=== PATIENT | female | born 1985 | race African-American/Black ===

== ENCOUNTER 2016-04-24 11:53 | Inpatient (IN) | payer MEDICAID ==
[~2016-04-24] VITALS: Ht 160 cm; Wt 61.2 kg
[~2016-04-24 11:53] MED LIST: AMLO10TA2 PO; ATE25T PO; FLUO20CA90 PO; GABA300C8 PO; INSLANTI SUBCUT; LEVE100020 PO; PHE100C PO
[2016-04-24 12:28] LABS: Urine Bilirubin Negative (Negative); Urine Blood Negative /uL (Negative); Urine Color Yellow (Yellow); Urine Ketone TRACE (Negative); Urine Nitrite Negative (Negative); Urine RBC 3 /hpf (0 - 4); Urine Squamous Epithelial Cell FEW /hpf (<5); Urine Urobilinogen Normal (Negative); Urine pH 8.5 (5.0-8.0)
[2016-04-24 12:30] LABS: Urine Glucose 4+ mg/dL (Normal)
[2016-04-24 12:46] LABS: Basophils # (auto) 0 uL; Basophils % (auto) 0.1 % (0.0-2.0); Eosinophils # (auto) 0 uL; Eosinophils % (auto) 0.1 % (0.0-7.0); Hematocrit 29.1 % (36.0-46.0); Hemoglobin 9.5 g/dL (12.2-16.2); Lymphocytes # (auto) 0.4 uL; Mean Corpuscular Hemoglobin 32.9 pg (28.0-32.0); Mean Corpuscular Hgb Conc. 32.7 g/dL (32.0-36.0); Mean Corpuscular Volume 100.9 fL (80.0-100.0); Mean Platelet Volume 10.1 fL (7.4-10.4); Monocytes # (auto) 0.2 uL; Monocytes % (auto) 2.3 % (0.0-12.0); Neutrophils % (auto) 93.5 % (37.0-80.0); Platelet Count (auto) 180 10^3/uL (140-450); Red Cell Distribution Width 15.3 % (11.6-16.0); White Blood Cell 10.7 10^3/uL (4.4-10.8)
[2016-04-24 13:07] LABS: Albumin 3.2 g/dL (3.4-5.0); Calcium 8.9 mg/dL (8.5-10.1); Magnesium 3.1 mg/dL (1.6-2.6); Potassium 4.9 mmol/L (3.5-5.1)
[2016-04-24 13:10] LABS: BUN/Creatinine Ratio 11.8
[2016-04-24 13:16] LABS: Bilirubin, Total 0.3 mg/dL (0.2-1.0); Total Protein 7.3 g/dL (6.4-8.2)
[2016-04-24] MEDS ORDERED: ASPirin 325 MG TAB PO ONE (13:30)
[2016-04-24] MEDS ORDERED: InsuLIN REG 1unit/0.01ml Soln (100units/ml) IV ONE (13:30)
[2016-04-24] MEDS ORDERED: ONDANSETRON HCL 4 MG/2 ML VIAL IV ONE (13:30)
[2016-04-24] MEDS ORDERED: MORPHINE SULFATE 4 MG/ML SYRG IV ONE (13:30)
[2016-04-24] MEDS ORDERED: PIPERACILLIN-TAZOB 3.375GM 100 ML IV ONE (13:30)
[2016-04-24 14:46] LABS: Lactic Acid 3.8 mmol/L (0.4-2.0)
[2016-04-24 15:08] LABS: REFLEX LACTIC ACID YES OR NO YES
[2016-04-24 16:30] LABS: Lactic Acid 5.1 mmol/L (0.4-2.0)
[2016-04-24 16:37] LABS: REFLEX LACTIC ACID YES OR NO NO
[2016-04-24] MEDS ORDERED: metroNIDAZOLE 500MG/100ML 100 ML IV ONE (16:45)
[2016-04-24] MEDS ORDERED: ACETAMINOPHEN 325 MG TAB PO PRN (17:15)
[2016-04-24] MEDS ORDERED: DEXTROSE (50%) 50ML SYRG IV PRN (17:15)
[2016-04-24] MEDS ORDERED: LORazepam 2MG/ML-1ML VIAL IV PRN (17:15)
[2016-04-24] MEDS ORDERED: TEMAZEPAM 15 MG CAP PO PRN (17:15)
[2016-04-24] MEDS ORDERED: MORPHINE SULF INJ 2 MG/ML SYRINGE 1ML IV PRN (17:15)
[2016-04-24] MEDS ORDERED: NITROGLYCERIN 0.4 MG SL TAB SL PRN (17:15)
[2016-04-24] MEDS: SODIUM CHLORIDE 0.9% 1,000 ML IV SCH (17:36)
[2016-04-24] MEDS ORDERED: FLUoxetine HCL 20 MG CAP PO ONE (17:45)
[2016-04-24] MEDS ORDERED: PHENYTOIN SODIUM 100 MG CAP PO ONE (17:45)
[2016-04-24] MEDS ORDERED: MULTIPLE VITAMIN TAB PO ONE (17:45)
[2016-04-24] MEDS: FAMOTIDINE 20 MG TAB PO SCH (17:45)
[2016-04-24] MEDS ORDERED: LEVETIRACETAM 500 MG TAB PO ONE (17:45)
[2016-04-24] MEDS ORDERED: ATENOLOL 25 MG TAB PO ONE (17:45)
[2016-04-24 18:00] VITALS: BP 132/89
[2016-04-24] MEDS ORDERED: InsuLIN REG 1unit/0.01ml Soln (100units/ml) SC ONE (18:00)
[2016-04-24] MEDS ORDERED: ACCU-CHEK COMFORT CURVE STRIP VI ONE (18:00)
[2016-04-24] MEDS ORDERED: cloNIDine HCL 0.1 MG TAB PO PRN (18:45)
[2016-04-24] MEDS ORDERED: LISI10TA6 PO (18:53)
[2016-04-24] MEDS ORDERED: METO-159 PO (18:53)
[2016-04-24] MEDS ORDERED: NIF10C PO (18:53)
[2016-04-24] MEDS ORDERED: DOCU100T15 PO (18:53)
[2016-04-24] MEDS ORDERED: GABA300C8 PO (18:53)
[2016-04-24] MEDS ORDERED: ONDA8TAB6 PO (18:53)
[2016-04-24] MEDS ORDERED: AMLO5TAB2 PO (18:53)
[2016-04-24 18:55] VITALS: BP 132/89
[2016-04-24] MEDS: ONDANSETRON HCL 4 MG/2 ML VIAL IV PRN (20:23)
[2016-04-24] MEDS: MORPHINE SULF INJ 2 MG/ML SYRINGE 1ML IV PRN (20:23)
[2016-04-24] MEDS: PHENYTOIN SODIUM 100 MG CAP PO SCH (21:41)
[2016-04-24] MEDS: GABAPENTIN 100 MG CAP PO SCH (21:41)
[2016-04-24] MEDS: LEVETIRACETAM 500 MG TAB PO SCH (21:42)
[2016-04-24 22:00] VITALS: BP 141/76
[2016-04-24] MEDS ORDERED: InsuLIN REG 1unit/0.01ml Soln (100units/ml) SC SCH (22:00)
[2016-04-24] MEDS: ACCU-CHEK COMFORT CURVE STRIP VI SCH (22:13)
[2016-04-24] MEDS: PIPERACILLIN-TAZOB 2.25GM 50 ML IV SCH (22:13)
[2016-04-24] MEDS: INSULIN DETEMIR(LEVEMIR) 1unit/0.01ml Soln (100units/ml) SC SCH (22:14)
[2016-04-25] MEDS: SODIUM CHLORIDE 0.9% 1,000 ML IV SCH ×2 (01:29→09:49)
[2016-04-25] MEDS: metroNIDAZOLE 500MG/100ML 100 ML IV SCH ×3 (02:00→18:01)
[2016-04-25] MEDS: MORPHINE SULF INJ 2 MG/ML SYRINGE 1ML IV PRN ×3 (03:02→22:22)
[2016-04-25] MEDS: ONDANSETRON HCL 4 MG/2 ML VIAL IV PRN ×2 (03:02→22:22)
[2016-04-25 05:00] VITALS: BP 120/69
[2016-04-25] MEDS: ACCU-CHEK COMFORT CURVE STRIP VI SCH ×6 (06:43→22:23)
[2016-04-25] MEDS: InsuLIN REG 1unit/0.01ml Soln (100units/ml) SC SCH ×4 (06:44→22:00)
[2016-04-25] MEDS: INSULIN DETEMIR(LEVEMIR) 1unit/0.01ml Soln (100units/ml) SC SCH ×2 (06:44→22:53)
[2016-04-25 07:50] LABS: Albumin 2.5 g/dL (3.4-5.0); BUN/Creatinine Ratio 10.3; Calcium 7.9 mg/dL (8.5-10.1); Potassium 4.5 mmol/L (3.5-5.1)
[2016-04-25 07:53] LABS: Bilirubin, Total 0.2 mg/dL (0.2-1.0); Total Protein 6.4 g/dL (6.4-8.2)
[2016-04-25 08:47] LABS: Basophils # (auto) 0 uL; Basophils % (auto) 0.2 % (0.0-2.0); DEFINITIVE VIEW TRANSMISSION; Eosinophils # (auto) 0.1 uL; Eosinophils % (auto) 1.3 % (0.0-7.0); Hematocrit 24.2 % (36.0-46.0); Hemoglobin 7.8 g/dL (12.2-16.2); Lymphocytes # (auto) 0.6 uL; Lymphocytes % (auto) 10.2 % (10.0-50.0); Mean Corpuscular Hemoglobin 32.8 pg (28.0-32.0); Mean Corpuscular Hgb Conc. 32.1 g/dL (32.0-36.0); Mean Corpuscular Volume 102.1 fL (80.0-100.0); Mean Platelet Volume 10.9 fL (7.4-10.4); Monocytes # (auto) 0.4 uL; Monocytes % (auto) 7.9 % (0.0-12.0); Neutrophils # (auto) 4.5 uL; Neutrophils % (auto) 80.4 % (37.0-80.0); Platelet Count (auto) 117 10^3/uL (140-450); Red Cell Distribution Width 15.2 % (11.6-16.0); White Blood Cell 5.6 10^3/uL (4.4-10.8)
[2016-04-25 09:00] VITALS: BP 120/78
[2016-04-25] MEDS: PHENYTOIN SODIUM 100 MG CAP PO SCH ×2 (09:22→22:02)
[2016-04-25] MEDS: LEVETIRACETAM 500 MG TAB PO SCH ×2 (09:23→22:02)
[2016-04-25] MEDS: MULTIPLE VITAMIN TAB PO SCH (09:23)
[2016-04-25] MEDS: GABAPENTIN 100 MG CAP PO SCH ×2 (09:24→22:03)
[2016-04-25] MEDS: amLODIPine BESYLATE 5 MG TAB PO SCH (09:26)
[2016-04-25] MEDS: FLUoxetine HCL 20 MG CAP PO SCH (09:27)
[2016-04-25] MEDS: FAMOTIDINE 20 MG TAB PO SCH (09:27)
[2016-04-25] MEDS: ATENOLOL 25 MG TAB PO SCH (09:28)
[2016-04-25] MEDS: HYDROcodone-ACET 5/325MG TAB PO PRN ×2 (09:29→14:22)
[2016-04-25] MEDS ORDERED: PIPERACILLIN-TAZOB 0.75 GM in D5W 5% 50 ML IV SCH (09:30)
[2016-04-25] MEDS: PIPERACILLIN-TAZOB 2.25GM 50 ML IV SCH (10:38)
[2016-04-25 12:55] VITALS: BP 114/65
[2016-04-25] MEDS ORDERED: DEXTROSE (50%) 50ML SYRG IV PRN (13:45)
[2016-04-25 17:00] VITALS: BP 119/79
[2016-04-25 21:04] VITALS: BP 131/97
[2016-04-26] VITALS (7 sets, daily range): BP systolic 114–189; BP diastolic 66–102
[2016-04-26] MEDS: VANCOMYCIN HCL 125MG/5ML ORAL SOL PO SCH ×5 (00:48→18:00)
[2016-04-26] MEDS: metroNIDAZOLE 500MG/100ML 100 ML IV SCH ×3 (01:37→17:00)
[2016-04-26 05:57] LABS: Basophils # (auto) 0 uL; Basophils % (auto) 0.8 % (0.0-2.0); DEFINITIVE VIEW TRANSMISSION; Eosinophils # (auto) 0 uL; Hematocrit 24.6 % (36.0-46.0); Lymphocytes # (auto) 0.9 uL; Lymphocytes % (auto) 20.2 % (10.0-50.0); Mean Corpuscular Hgb Conc. 32.4 g/dL (32.0-36.0); Mean Corpuscular Volume 104.9 fL (80.0-100.0); Mean Platelet Volume 10.3 fL (7.4-10.4); Monocytes # (auto) 0.4 uL; Monocytes % (auto) 8.9 % (0.0-12.0); Neutrophils # (auto) 2.9 uL; Neutrophils % (auto) 69.1 % (37.0-80.0); Platelet Count (auto) 135 10^3/uL (140-450); White Blood Cell 4.2 10^3/uL (4.4-10.8)
[2016-04-26 06:22] LABS: BUN/Creatinine Ratio 8.7; Calcium 7.9 mg/dL (8.5-10.1); Potassium 5.2 mmol/L (3.5-5.1)
[2016-04-26] MEDS: INSULIN DETEMIR(LEVEMIR) 1unit/0.01ml Soln (100units/ml) SC SCH ×2 (07:00→21:15)
[2016-04-26] MEDS: InsuLIN REG 1unit/0.01ml Soln (100units/ml) SC SCH ×4 (07:00→21:19)
[2016-04-26] MEDS: ACCU-CHEK COMFORT CURVE STRIP VI SCH ×8 (07:08→21:14)
[2016-04-26] MEDS: MORPHINE SULF INJ 2 MG/ML SYRINGE 1ML IV PRN (09:41)
[2016-04-26] MEDS: ONDANSETRON HCL 4 MG/2 ML VIAL IV PRN (09:42)
[2016-04-26] MEDS: MULTIPLE VITAMIN TAB PO SCH (16:53)
[2016-04-26] MEDS: PHENYTOIN SODIUM 100 MG CAP PO SCH ×2 (16:54→21:13)
[2016-04-26] MEDS: GABAPENTIN 100 MG CAP PO SCH ×2 (16:54→21:14)
[2016-04-26] MEDS: FLUoxetine HCL 20 MG CAP PO SCH (16:54)
[2016-04-26] MEDS: LEVETIRACETAM 500 MG TAB PO SCH ×2 (16:54→21:13)
[2016-04-26] MEDS: FAMOTIDINE 20 MG TAB PO SCH (16:55)
[2016-04-26] MEDS: amLODIPine BESYLATE 5 MG TAB PO SCH (16:56)
[2016-04-26] MEDS: ATENOLOL 25 MG TAB PO SCH (16:57)
[2016-04-26] MEDS: HYDROcodone-ACET 5/325MG TAB PO PRN (21:18)
[2016-04-27] MEDS: VANCOMYCIN HCL 125MG/5ML ORAL SOL PO SCH ×4 (01:07→17:16)
[2016-04-27] MEDS: metroNIDAZOLE 500MG/100ML 100 ML IV SCH ×3 (01:07→17:00)
[2016-04-27] MEDS: MORPHINE SULF INJ 2 MG/ML SYRINGE 1ML IV PRN ×3 (01:08→14:56)
[2016-04-27 04:51] VITALS: BP 134/84
[2016-04-27] MEDS: ACCU-CHEK COMFORT CURVE STRIP VI SCH ×6 (06:16→17:00)
[2016-04-27] MEDS: INSULIN DETEMIR(LEVEMIR) 1unit/0.01ml Soln (100units/ml) SC SCH (07:00)
[2016-04-27] MEDS: InsuLIN REG 1unit/0.01ml Soln (100units/ml) SC SCH ×3 (07:23→17:00)
[2016-04-27] MEDS: ONDANSETRON HCL 4 MG/2 ML VIAL IV PRN (08:40)
[2016-04-27] MEDS: PHENYTOIN SODIUM 100 MG CAP PO SCH (08:50)
[2016-04-27] MEDS: GABAPENTIN 100 MG CAP PO SCH (08:51)
[2016-04-27] MEDS: LEVETIRACETAM 500 MG TAB PO SCH (08:52)
[2016-04-27] MEDS: FAMOTIDINE 20 MG TAB PO SCH (08:52)
[2016-04-27] MEDS: amLODIPine BESYLATE 5 MG TAB PO SCH (08:52)
[2016-04-27] MEDS: ATENOLOL 25 MG TAB PO SCH (08:53)
[2016-04-27] MEDS: MULTIPLE VITAMIN TAB PO SCH (08:53)
[2016-04-27] MEDS: FLUoxetine HCL 20 MG CAP PO SCH (08:53)
[2016-04-27 09:00] VITALS: BP 132/78
[2016-04-27 13:00] VITALS: BP 123/86
[2016-04-27 16:20] VITALS: BP 132/78
== END 2016-04-27 18:45 | disposition home or self-care (01) | DRG 248 ==
LOC: EDUNIT# 11:53 → ER 11:58 → TELE 11:59 → TELE-CENTR 18:02
PROVIDERS: ADMIT Internal Medicine; ATTEND Hospitalist
DX: A04.7 Enterocolitis due to Clostridium difficile (principal); K85.00 Idiopathic acute pancreatitis without necrosis or infection; N18.6 End stage renal disease; E11.22 Type 2 diabetes mellitus with diabetic chronic kidney disease; I13.11 Hypertensive heart and chronic kidney disease without heart failure, with stage 5 chronic kidney disease, or end stage renal disease; D63.1 Anemia in chronic kidney disease; J11.1 Influenza due to unidentified influenza virus with other respiratory manifestations; G40.909 Epilepsy, unspecified, not intractable, without status epilepticus; E11.65 Type 2 diabetes mellitus with hyperglycemia; Z88.8 Allergy status to other drugs, medicaments and biological substances; Z88.6 Allergy status to analgesic agent; Z99.2 Dependence on renal dialysis; Z82.49 Family history of ischemic heart disease and other diseases of the circulatory system; Z83.3 Family history of diabetes mellitus
CPT/HCPCS: 36415; 72040; 72100; 72170; 73030; 74176; 80048; 80053; 81001; 81025; 82150; 82962; 83036; 83605; 83690; 83735; 84484; 85025; 87040; 87077; 87081; 87186; 87400; 87493; 90935; 93005; 96365; 96366; 96367; 96375; J1815; J2405; J2543; J3490

== ENCOUNTER 2016-05-02 20:21 | Inpatient (IN) | payer MEDICAID ==
[~2016-05-02] VITALS: Ht 165.1 cm; Wt 57.3 kg
[~2016-05-02 20:21] MED LIST changes: +AMLO5TAB2 PO; +DOCU100T15 PO; +LISI10TA6 PO; +METO-159 PO; +NIF10C PO; +ONDA8TAB6 PO
[2016-05-02] MEDS ORDERED: DEXTROSE (50%) 50ML SYRG IV ONE (21:00)
[2016-05-02 21:33] LABS: Basophils # (auto) 0 uL; DEFINITIVE VIEW TRANSMISSION; Eosinophils # (auto) 0 uL; Eosinophils % (auto) 0.4 % (0.0-7.0); Hematocrit 24.2 % (36.0-46.0); Hemoglobin 8.1 g/dL (12.2-16.2); Lymphocytes # (auto) 0.6 uL; Lymphocytes % (auto) 8.3 % (10.0-50.0); Mean Corpuscular Hemoglobin 34.3 pg (28.0-32.0); Mean Corpuscular Hgb Conc. 33.3 g/dL (32.0-36.0); Mean Platelet Volume 9.2 fL (7.4-10.4); Monocytes # (auto) 0 uL; Monocytes % (auto) 0.2 % (0.0-12.0); Neutrophils # (auto) 6.3 uL; Neutrophils % (auto) 91.1 % (37.0-80.0); Platelet Count (auto) 165 10^3/uL (140-450); Red Cell Distribution Width 15.6 % (11.6-16.0); White Blood Cell 6.9 10^3/uL (4.4-10.8)
[2016-05-02] MEDS ORDERED: ACETAMINOPHEN 325 MG TAB PO ONE ×2 (21:36→21:45)
[2016-05-02 21:45] LABS: INR 1.13 (0.9-1.15); Partial Thromboplastin Time 48.5 sec (22.64-33.71); Prothrombin Time 11.6 sec (9.37-12.3)
[2016-05-02 21:47] LABS: Lactic Acid 3.8 mmol/L (0.4-2.0)
[2016-05-02 21:49] LABS: REFLEX LACTIC ACID YES OR NO YES
[2016-05-02 21:51] LABS: Albumin 2.5 g/dL (3.4-5.0); BUN/Creatinine Ratio 9.7; Calcium 7.4 mg/dL (8.5-10.1); Potassium 3.6 mmol/L (3.5-5.1)
[2016-05-02 21:54] LABS: Bilirubin, Total 0.3 mg/dL (0.2-1.0); Total Protein 6.4 g/dL (6.4-8.2)
[2016-05-02] MEDS ORDERED: SODIUM CHLORIDE 0.9% 1,000 ML IV ONE (22:00)
[2016-05-02] MEDS ORDERED: ONDANSETRON HCL 4 MG/2 ML VIAL IV ONE (22:00)
[2016-05-02] MEDS ORDERED: HYDROmorphone HCL 2 MG/ML VL IV ONE (22:00)
[2016-05-02] MEDS ORDERED: D5W 5% 1,000 ML IV ONE (22:15)
[2016-05-02] MEDS ORDERED: cefTRIAXone 1GM/50ML D5W 50 ML IV ONE (23:30)
[2016-05-03 00:31] LABS: Lactic Acid 2.9 mmol/L (0.4-2.0)
[2016-05-03 00:33] LABS: REFLEX LACTIC ACID YES OR NO NO
[2016-05-03] MEDS ORDERED: ONDANSETRON HCL 4 MG/2 ML VIAL IV ONE (04:15)
[2016-05-03] MEDS ORDERED: HYDROmorphone HCL 2 MG/ML VL IV ONE (04:15)
[2016-05-03] MEDS ORDERED: ACETAMINOPHEN 325 MG TAB PO PRN (05:45)
[2016-05-03] MEDS ORDERED: TEMAZEPAM 15 MG CAP PO PRN (05:45)
[2016-05-03] MEDS ORDERED: NITROGLYCERIN 0.4 MG SL TAB SL PRN (05:45)
[2016-05-03] MEDS ORDERED: ONDANSETRON HCL 4 MG/2 ML VIAL IV PRN (05:45)
[2016-05-03] MEDS ORDERED: LORazepam 2MG/ML-1ML VIAL IV PRN (05:45)
[2016-05-03] MEDS ORDERED: MORPHINE SULF INJ 2 MG/ML SYRINGE 1ML IV PRN (05:45)
[2016-05-03] MEDS: InsuLIN REG 1unit/0.01ml Soln (100units/ml) SC SCH ×4 (06:00→22:52)
[2016-05-03] MEDS ORDERED: metroNIDAZOLE 500MG/100ML 100 ML IV ONE (06:06)
[2016-05-03] MEDS: ACCU-CHEK COMFORT CURVE STRIP VI SCH ×4 (06:08→22:52)
[2016-05-03] MEDS: metroNIDAZOLE 500MG/100ML 100 ML IV SCH ×3 (06:15→22:52)
[2016-05-03] MEDS ORDERED: cefTRIAXone 1GM/50ML D5W 50 ML IV ONE (06:15)
[2016-05-03] MEDS ORDERED: FAMOTIDINE 20 MG TAB PO SCH (10:00)
[2016-05-03] MEDS: LEVETIRACETAM 500 MG TAB PO SCH ×2 (10:14→22:52)
[2016-05-03] MEDS: NIFEdipine ER 30 MG TAB PO SCH (10:14)
[2016-05-03] MEDS: FAMOTIDINE 20 MG TAB PO SCH (10:15)
[2016-05-03] MEDS: amLODIPine BESYLATE 5 MG TAB PO SCH (10:15)
[2016-05-03] MEDS: GABAPENTIN 300 MG CAP PO SCH ×2 (10:15→22:52)
[2016-05-03] MEDS: PHENYTOIN SODIUM 100 MG CAP PO SCH ×2 (10:15→22:52)
[2016-05-03] MEDS: ATENOLOL 25 MG TAB PO SCH (10:16)
[2016-05-03] MEDS: ENOXAPARIN SOD 30 MG/0.3 ML SYRINGE SC SCH (10:18)
[2016-05-03 10:45] VITALS: BP 124/76
[2016-05-03] MEDS: MORPHINE SULF INJ 2 MG/ML SYRINGE 1ML IV PRN ×3 (11:13→22:54)
[2016-05-03 13:36] VITALS: BP 109/67
[2016-05-03] MEDS ORDERED: VANCOMYCIN PER PHARMACY 0 MG IV SCH (13:45)
[2016-05-03] MEDS ORDERED: VANCOMYCIN 1GM/250ML D5W 250 ML IV ONE (13:45)
[2016-05-03 13:47] LABS: Lactic Acid 2.4 mmol/L (0.4-2.0)
[2016-05-03 14:07] LABS: B-Type Natriuretic Peptide 1883.45 pg/mL (0-100)
[2016-05-03 14:40] LABS: REFLEX LACTIC ACID YES OR NO YES
[2016-05-03] MEDS: ERTAPENEM SOD INJ 0.5 GM in SODIUM CHL 0.9% 50 ML IV SCH (15:34)
[2016-05-03 16:55] VITALS: BP 108/67
[2016-05-03 22:00] VITALS: BP 109/67
[2016-05-03] MEDS: DEXTROSE (50%) 50ML SYRG IV PRN (22:53)
[2016-05-04] MEDS: MORPHINE SULF INJ 2 MG/ML SYRINGE 1ML IV PRN ×3 (04:55→16:12)
[2016-05-04 05:08] LABS: Basophils # (auto) 0 uL; Basophils % (auto) 0.1 % (0.0-2.0); DEFINITIVE VIEW TRANSMISSION; Eosinophils # (auto) 0.1 uL; Eosinophils % (auto) 1.5 % (0.0-7.0); Hematocrit 24.7 % (36.0-46.0); Hemoglobin 7.9 g/dL (12.2-16.2); Lymphocytes # (auto) 1.4 uL; Mean Corpuscular Volume 103.3 fL (80.0-100.0); Mean Platelet Volume 8.8 fL (7.4-10.4); Monocytes # (auto) 0.4 uL; Monocytes % (auto) 6.9 % (0.0-12.0); Neutrophils % (auto) 67.5 % (37.0-80.0); Platelet Count (auto) 160 10^3/uL (140-450); Red Cell Distribution Width 16.5 % (11.6-16.0); White Blood Cell 5.9 10^3/uL (4.4-10.8)
[2016-05-04 05:19] VITALS: BP 103/68
[2016-05-04] MEDS: metroNIDAZOLE 500MG/100ML 100 ML IV SCH ×2 (05:48→14:35)
[2016-05-04] MEDS: DEXTROSE (50%) 50ML SYRG IV PRN (05:48)
[2016-05-04] MEDS: ACCU-CHEK COMFORT CURVE STRIP VI SCH ×3 (05:48→17:31)
[2016-05-04] MEDS: InsuLIN REG 1unit/0.01ml Soln (100units/ml) SC SCH ×3 (05:51→17:33)
[2016-05-04] MEDS ORDERED: DEXTROSE (50%) 50ML SYRG IV PRN (06:15)
[2016-05-04] MEDS ORDERED: D5W 5% 1,000 ML IV SCH (06:15)
[2016-05-04] MEDS ORDERED: EPOETIN ALFA 10,000 UNIT/1 ML VIAL IV ONE (08:00)
[2016-05-04] MEDS ORDERED: SODIUM CHL 0.9% 1000 ML BAG XX ONE (08:00)
[2016-05-04 09:00] VITALS: BP 123/89
[2016-05-04] MEDS ORDERED: cefTRIAXone 1GM/50ML D5W 50 ML IV SCH (09:00)
[2016-05-04 09:14] LABS: BUN/Creatinine Ratio 8.4; Calcium 7.9 mg/dL (8.5-10.1); Magnesium 2.6 mg/dL (1.6-2.6); Potassium 4.4 mmol/L (3.5-5.1)
[2016-05-04 10:30] VITALS: BP 148/88
[2016-05-04] MEDS: LEVETIRACETAM 500 MG TAB PO SCH (10:35)
[2016-05-04] MEDS: GABAPENTIN 300 MG CAP PO SCH (10:35)
[2016-05-04] MEDS: amLODIPine BESYLATE 5 MG TAB PO SCH (10:35)
[2016-05-04] MEDS: PHENYTOIN SODIUM 100 MG CAP PO SCH (10:35)
[2016-05-04] MEDS: FAMOTIDINE 20 MG TAB PO SCH (10:36)
[2016-05-04] MEDS: NIFEdipine ER 30 MG TAB PO SCH (10:36)
[2016-05-04] MEDS: ATENOLOL 25 MG TAB PO SCH (10:37)
[2016-05-04] MEDS: ENOXAPARIN SOD 30 MG/0.3 ML SYRINGE SC SCH (10:37)
[2016-05-04 13:00] VITALS: BP 134/89
[2016-05-04] MEDS: Boost Glucose Control 8 Ounces PO SCH ×2 (13:51→17:33)
[2016-05-04] MEDS ORDERED: VANCOMYCIN 1GM/250ML D5W 250 ML IV ONE (14:00)
[2016-05-04] MEDS: HYDROcodone-ACET 5/325MG TAB PO PRN ×2 (15:25→16:46)
[2016-05-04] MEDS: ERTAPENEM SOD INJ 0.5 GM in SODIUM CHL 0.9% 50 ML IV SCH (16:46)
[2016-05-04 17:00] VITALS: BP 103/72
== END 2016-05-04 19:38 | DRG 720 ==
LOC: EDBD 20:21 → ER 20:21 → TELE 20:22 → TELE-CENTR 05-03 08:40
PROVIDERS: ADMIT Nurse Practitioner; ATTEND Internal Medicine
DX: A41.9 Sepsis, unspecified organism (principal); E43 Unspecified severe protein-calorie malnutrition; I13.2 Hypertensive heart and chronic kidney disease with heart failure and with stage 5 chronic kidney disease, or end stage renal disease; A04.7 Enterocolitis due to Clostridium difficile; N18.6 End stage renal disease; I50.9 Heart failure, unspecified; L03.114 Cellulitis of left upper limb; D63.1 Anemia in chronic kidney disease; E11.22 Type 2 diabetes mellitus with diabetic chronic kidney disease; B96.89 Other specified bacterial agents as the cause of diseases classified elsewhere; E11.649 Type 2 diabetes mellitus with hypoglycemia without coma; G40.909 Epilepsy, unspecified, not intractable, without status epilepticus; Z82.49 Family history of ischemic heart disease and other diseases of the circulatory system; Z83.3 Family history of diabetes mellitus; Z99.2 Dependence on renal dialysis; Z91.14 Patient's other noncompliance with medication regimen; Z91.19 Patient's noncompliance with other medical treatment and regimen; Z98.51 Tubal ligation status; Z88.6 Allergy status to analgesic agent; Z68.21 Body mass index [BMI] 21.0-21.9, adult
CPT/HCPCS: 36415; 70450; 71010; 80048; 80053; 80185; 80202; 82962; 83036; 83605; 83735; 83880; 84484; 85025; 85049; 85610; 85730; 87040; 87081; 93005; 93971; 94761; 96361; 96365; 96375; 96376; J0696; J0885; J1335; J1642; J1815; J2405; J3490; J7042

== ENCOUNTER 2016-08-15 17:47 | Inpatient (IN) | payer MEDICAID ==
[~2016-08-15] VITALS: Ht 165.1 cm; Wt 56.7 kg
[~2016-08-15 17:47] MED LIST changes: -AMLO5TAB2 PO
[2016-08-15 19:20] LABS: Basophils # (auto) 0 uL; Basophils % (auto) 0.3 % (0.0-2.0); Eosinophils # (auto) 0.1 uL; Eosinophils % (auto) 1.6 % (0.0-7.0); Hematocrit 29.9 % (36.0-46.0); Hemoglobin 9.8 g/dL (12.2-16.2); Lymphocytes # (auto) 1.3 uL; Lymphocytes % (auto) 24.2 % (10.0-50.0); Mean Corpuscular Hemoglobin 32.2 pg (28.0-32.0); Mean Corpuscular Hgb Conc. 32.8 g/dL (32.0-36.0); Mean Corpuscular Volume 98.2 fL (80.0-100.0); Monocytes # (auto) 0.3 uL; Neutrophils # (auto) 3.7 uL; Neutrophils % (auto) 67.9 % (37.0-80.0); Platelet Count (auto) 163 10^3/uL (140-450); Red Cell Distribution Width 14.3 % (11.6-16.0); White Blood Cell 5.5 10^3/uL (4.4-10.8)
[2016-08-15 19:39] LABS: INR 0.93 (0.9-1.15); Partial Thromboplastin Time 26.1 sec (22.64-33.71)
[2016-08-15 19:40] LABS: Albumin 3.6 g/dL (3.4-5.0); BUN/Creatinine Ratio 11.3; Calcium 8.7 mg/dL (8.5-10.1); Potassium 5.3 mmol/L (3.5-5.1)
[2016-08-15 19:43] LABS: Bilirubin, Total 0.4 mg/dL (0.2-1.0); Total Protein 7.4 g/dL (6.4-8.2)
[2016-08-15] MEDS ORDERED: HYDROcodone-ACET 5/325MG TAB PO ONE (23:15)
[2016-08-16] MEDS ORDERED: DEXTROSE (50%) 50ML SYRG IV ONE (01:00)
[2016-08-16] MEDS ORDERED: CALCIUM GLUC 4.65 MEQ/10ML 4.65 MEQ in SODIUM CHL 0.9% 50 ML IV ONE (01:00)
[2016-08-16] MEDS ORDERED: SODIUM BICARBONATE 8.4 % INJ 50ML VIAL IV ONE (01:00)
[2016-08-16] MEDS ORDERED: ONDANSETRON HCL 4 MG/2 ML VIAL IV PRN (01:00)
[2016-08-16] MEDS ORDERED: TEMAZEPAM 15 MG CAP PO PRN (01:00)
[2016-08-16] MEDS ORDERED: NITROGLYCERIN 0.4 MG SL TAB SL PRN (01:00)
[2016-08-16] MEDS ORDERED: SODIUM POLYSTYRENE SULF 15GM/60ML SUSP PO ONE (01:00)
[2016-08-16] MEDS ORDERED: MORPHINE SULF INJ 2 MG/ML SYRINGE 1ML IV PRN (01:00)
[2016-08-16] MEDS ORDERED: InsuLIN REG 1unit/0.01ml Soln (100units/ml) IV ONE (01:00)
[2016-08-16] MEDS ORDERED: ACETAMINOPHEN 325 MG TAB PO PRN (01:00)
[2016-08-16] MEDS ORDERED: cloNIDine HCL 0.1 MG TAB PO ONE (01:30)
[2016-08-16] MEDS ORDERED: cloNIDine HCL 0.1 MG TAB PO PRN (01:30)
[2016-08-16] MEDS ORDERED: CALCIUM GLUC 4.65 MEQ/10ML IV ONE (01:40)
[2016-08-16] MEDS: DEXTROSE (50%) 50ML SYRG IV PRN ×2 (01:59→02:00)
[2016-08-16] MEDS: HYDROcodone-ACET 5/325MG TAB PO PRN ×5 (02:27→21:20)
[2016-08-16 05:10] VITALS: BP 188/99
[2016-08-16] MEDS: InsuLIN REG 1unit/0.01ml Soln (100units/ml) SC SCH ×4 (05:35→23:53)
[2016-08-16] MEDS: ACCU-CHEK COMFORT CURVE STRIP VI SCH ×4 (05:35→23:53)
[2016-08-16 09:12] VITALS: BP 179/105
[2016-08-16] MEDS: FLUoxetine HCL 20 MG CAP PO SCH (09:44)
[2016-08-16] MEDS: ENOXAPARIN SOD 30 MG/0.3 ML SYRINGE SC SCH (09:44)
[2016-08-16] MEDS: NIFEdipine ER 30 MG TAB PO SCH (09:45)
[2016-08-16] MEDS: METOPROLOL SUCCINATE XL 50 MG TAB PO SCH (09:46)
[2016-08-16] MEDS: FAMOTIDINE 20 MG TAB PO SCH (09:47)
[2016-08-16] MEDS: LISINOPRIL 10 MG TAB PO SCH (10:00)
[2016-08-16] MEDS: ATENOLOL 25 MG TAB PO SCH (10:00)
[2016-08-16] MEDS ORDERED: LEVETIRACETAM 500 MG TAB PO SCH ×2 (10:00→22:00)
[2016-08-16] MEDS ORDERED: PHENYTOIN SODIUM 100 MG CAP PO SCH (10:00)
[2016-08-16] MEDS ORDERED: FAMOTIDINE 20 MG TAB PO SCH (10:00)
[2016-08-16] MEDS: amLODIPine BESYLATE 5 MG TAB PO SCH (10:00)
[2016-08-16 12:13] VITALS: BP 153/78
[2016-08-16 16:25] VITALS: BP 141/78
[2016-08-16] MEDS ORDERED: EPOETIN ALFA 10,000 UNIT/1 ML VIAL SC ONE (16:45)
[2016-08-16 18:56] VITALS: BP 160/94
[2016-08-16] MEDS: PHENYTOIN SODIUM 100 MG CAP PO SCH (21:32)
[2016-08-16 22:00] VITALS: BP 138/85
[2016-08-17 05:30] VITALS: BP 113/62
[2016-08-17] MEDS: InsuLIN REG 1unit/0.01ml Soln (100units/ml) SC SCH ×2 (06:00→12:00)
[2016-08-17] MEDS: HYDROcodone-ACET 5/325MG TAB PO PRN ×2 (06:04→10:22)
[2016-08-17] MEDS: ACCU-CHEK COMFORT CURVE STRIP VI SCH ×2 (06:11→12:00)
[2016-08-17 06:19] LABS: Basophils # (auto) 0 uL; Basophils % (auto) 0.4 % (0.0-2.0); Eosinophils # (auto) 0.1 uL; Eosinophils % (auto) 1.9 % (0.0-7.0); Hematocrit 32.7 % (36.0-46.0); Hemoglobin 10.7 g/dL (12.2-16.2); Lymphocytes # (auto) 2.4 uL; Lymphocytes % (auto) 49.7 % (10.0-50.0); Mean Corpuscular Hemoglobin 33.2 pg (28.0-32.0); Mean Corpuscular Hgb Conc. 32.9 g/dL (32.0-36.0); Mean Corpuscular Volume 100.9 fL (80.0-100.0); Mean Platelet Volume 10.3 fL (7.4-10.4); Monocytes # (auto) 0.4 uL; Neutrophils # (auto) 1.9 uL; Platelet Count (auto) 181 10^3/uL (140-450); Red Cell Distribution Width 14.4 % (11.6-16.0); White Blood Cell 4.9 10^3/uL (4.4-10.8)
[2016-08-17 06:41] LABS: Potassium 3.3 mmol/L (3.5-5.1)
[2016-08-17 06:46] LABS: Albumin 3.1 g/dL (3.4-5.0); BUN/Creatinine Ratio 7.1; Calcium 8.4 mg/dL (8.5-10.1)
[2016-08-17 06:58] LABS: Bilirubin, Total 0.4 mg/dL (0.2-1.0); Total Protein 6.6 g/dL (6.4-8.2)
[2016-08-17 09:00] VITALS: BP 119/65
[2016-08-17] MEDS: ENOXAPARIN SOD 30 MG/0.3 ML SYRINGE SC SCH (09:28)
[2016-08-17] MEDS: METOPROLOL SUCCINATE XL 50 MG TAB PO SCH (09:30)
[2016-08-17] MEDS: FLUoxetine HCL 20 MG CAP PO SCH (09:32)
[2016-08-17] MEDS: amLODIPine BESYLATE 5 MG TAB PO SCH (09:33)
[2016-08-17] MEDS: ATENOLOL 25 MG TAB PO SCH (09:34)
[2016-08-17] MEDS: PHENYTOIN SODIUM 100 MG CAP PO SCH (09:36)
[2016-08-17] MEDS: FAMOTIDINE 20 MG TAB PO SCH (09:40)
[2016-08-17] MEDS: NIFEdipine ER 30 MG TAB PO SCH (09:40)
[2016-08-17] MEDS: LISINOPRIL 10 MG TAB PO SCH (09:43)
[2016-08-17 11:58] VITALS: BP 118/65
[2016-08-17 13:00] VITALS: BP 127/77
== END 2016-08-17 14:35 | disposition home or self-care (01) | DRG 460 ==
LOC: ER 17:47 → TELE 17:48 → TELE-CENTR 08-16 05:30
PROVIDERS: ADMIT Nurse Practitioner; ATTEND Internal Medicine
DX: I12.0 Hypertensive chronic kidney disease with stage 5 chronic kidney disease or end stage renal disease (principal); E10.22 Type 1 diabetes mellitus with diabetic chronic kidney disease; N18.6 End stage renal disease; E87.5 Hyperkalemia; I10 Essential (primary) hypertension; D63.8 Anemia in other chronic diseases classified elsewhere; Z99.2 Dependence on renal dialysis; G40.909 Epilepsy, unspecified, not intractable, without status epilepticus; D63.1 Anemia in chronic kidney disease; E10.42 Type 1 diabetes mellitus with diabetic polyneuropathy; E44.1 Mild protein-calorie malnutrition; Z68.20 Body mass index [BMI] 20.0-20.9, adult; F17.200 Nicotine dependence, unspecified, uncomplicated; G44.201 Tension-type headache, unspecified, intractable; Z82.49 Family history of ischemic heart disease and other diseases of the circulatory system; Z83.3 Family history of diabetes mellitus; Z91.19 Patient's noncompliance with other medical treatment and regimen; G89.29 Other chronic pain; Z88.8 Allergy status to other drugs, medicaments and biological substances; Z79.4 Long term (current) use of insulin; Z90.89 Acquired absence of other organs
CPT/HCPCS: 36415; 70450; 74176; 80053; 82962; 84132; 84702; 85025; 85610; 85730; 90935; 93005; 96374; 96375; 96376; J0885; J1815; J2405

== ENCOUNTER 2016-10-25 10:20 | Inpatient (IN) | payer MEDICAID ==
[~2016-10-25] VITALS: Ht 162.6 cm; Wt 55.7 kg
[~2016-10-25 10:20] MED LIST changes: +GABA-497 PO; -GABA300C8 PO
[2016-10-25] MEDS ORDERED: ONDANSETRON HCL 4 MG/2 ML VIAL IV ONE (11:30)
[2016-10-25] MEDS ORDERED: MORPHINE SULFATE 4 MG/ML SYRG IV ONE (11:30)
[2016-10-25 11:35] LABS: Basophils # (auto) 0 uL; Basophils % (auto) 0.3 % (0.0-2.0); CONDITION Y; Eosinophils # (auto) 0.1 uL; Eosinophils % (auto) 1.4 % (0.0-7.0); Hemoglobin 12.6 g/dL (12.2-16.2); Lymphocytes # (auto) 1.3 uL; Lymphocytes % (auto) 16.3 % (10.0-50.0); Mean Corpuscular Hemoglobin 33.1 pg (28.0-32.0); Mean Corpuscular Hgb Conc. 33.2 g/dL (32.0-36.0); Mean Corpuscular Volume 99.5 fL (80.0-100.0); Mean Platelet Volume 9.9 fL (7.4-10.4); Monocytes # (auto) 0.6 uL; Monocytes % (auto) 7.6 % (0.0-12.0); Neutrophils # (auto) 5.8 uL; Neutrophils % (auto) 74.4 % (37.0-80.0); Platelet Count (auto) 168 10^3/uL (140-450); Red Cell Distribution Width 17.6 % (11.6-16.0); White Blood Cell 7.8 10^3/uL (4.4-10.8)
[2016-10-25 11:52] LABS: Albumin 3.7 g/dL (3.4-5.0); BUN/Creatinine Ratio 6.2; Bilirubin, Total 0.4 mg/dL (0.2-1.0); Calcium 9.6 mg/dL (8.5-10.1); Magnesium 3.1 mg/dL (1.6-2.6); Total Protein 8.1 g/dL (6.4-8.2)
[2016-10-25 12:03] LABS: Potassium 5.7 mmol/L (3.5-5.1)
[2016-10-25 12:11] LABS: Urine Bilirubin Negative (Negative); Urine Color Yellow (Yellow); Urine Glucose Normal (Normal); Urine Ketone TRACE (Negative); Urine Nitrite Negative (Negative); Urine RBC 89 /hpf (0 - 4); Urine Squamous Epithelial Cell FEW /hpf (<5); Urine Urobilinogen Normal (Negative)
[2016-10-25 12:13] LABS: Urine Blood 2+ /uL (Negative)
[2016-10-25] MEDS ORDERED: CALCIUM GLUC 4.65 MEQ/10ML 4.65 MEQ in SODIUM CHL 0.9% 50 ML IV ONE (12:45)
[2016-10-25] MEDS ORDERED: SODIUM BICARBONATE 8.4 % INJ 50ML VIAL IV ONE (12:45)
[2016-10-25] MEDS ORDERED: DEXTROSE (50%) 50ML SYRG IV ONE (12:45)
[2016-10-25] MEDS ORDERED: ASPirin 81 mg TAB PO SCH (13:11)
[2016-10-25] MEDS ORDERED: MORPHINE SULF INJ 2 MG/ML SYRINGE 1ML IV PRN (13:15)
[2016-10-25] MEDS ORDERED: DEXTROSE (50%) 50ML SYRG IV PRN (13:15)
[2016-10-25] MEDS ORDERED: HYDROcodone-ACET 5/325MG TAB PO PRN (13:15)
[2016-10-25] MEDS ORDERED: NITROGLYCERIN 0.4 MG SL TAB SL PRN (13:15)
[2016-10-25] MEDS ORDERED: ACETAMINOPHEN 500 MG TAB PO PRN (13:15)
[2016-10-25] MEDS: PHENYTOIN SODIUM 100 MG CAP PO SCH ×2 (13:19→22:00)
[2016-10-25] MEDS ORDERED: METOPROLOL TARTRATE 50 MG TAB PO SCH (13:19)
[2016-10-25] MEDS: amLODIPine BESYLATE 5 MG TAB PO SCH (13:36)
[2016-10-25] MEDS ORDERED: InsuLIN REG 1unit/0.01ml Soln (100units/ml) IV ONE (13:45)
[2016-10-25] MEDS ORDERED: cefTRIAXone 1GM/50ML D5W 50 ML IV ONE (13:45)
[2016-10-25 14:04] LABS: Cholesterol 235 mg/dL (< 200); HDL Cholesterol 61 mg/dL (40-59); LDL Cholesterol 136 mg/dL (< 100); Triglycerides 187 mg/dL (< 150)
[2016-10-25] MEDS: ASPirin 81 mg TAB PO SCH (15:03)
[2016-10-25] MEDS: InsuLIN REG 1unit/0.01ml Soln (100units/ml) SC SCH ×2 (17:00→22:00)
[2016-10-25] MEDS: ACCU-CHEK COMFORT CURVE STRIP VI SCH ×2 (17:29→22:00)
[2016-10-25] MEDS ORDERED: LORazepam 2MG/ML-1ML VIAL ONE (20:31)
[2016-10-25] MEDS ORDERED: MIDAZOLAM HCL 1MG/1ML-2 ML VIAL ONE (20:43)
[2016-10-25] MEDS ORDERED: cefTRIAXone 1GM/50ML D5W 50 ML IV SCH (21:00)
[2016-10-25] MEDS ORDERED: MIDAZOLAM HCL 5 MG/ML-1ML VIAL IV ONE (21:00)
[2016-10-25] MEDS: ATORVASTATIN 20 MG TAB PO SCH (22:00)
[2016-10-25] MEDS: LEVETIRACETAM 500 MG TAB PO SCH (22:00)
[2016-10-25] MEDS: METOPROLOL TARTRATE 50 MG TAB PO SCH (22:01)
[2016-10-25] MEDS: GABAPENTIN 100 MG CAP PO SCH (22:01)
[2016-10-25 22:35] VITALS: BP 136/78
[2016-10-26] VITALS (7 sets, daily range): BP systolic 128–161; BP diastolic 51–95
[2016-10-26] MEDS: ONDANSETRON HCL 4 MG/2 ML VIAL IV PRN ×3 (06:15→20:34)
[2016-10-26] MEDS: MORPHINE SULF INJ 2 MG/ML SYRINGE 1ML IV PRN ×3 (06:15→20:35)
[2016-10-26] MEDS: InsuLIN REG 1unit/0.01ml Soln (100units/ml) SC SCH ×4 (06:28→22:15)
[2016-10-26] MEDS: ACCU-CHEK COMFORT CURVE STRIP VI SCH ×4 (06:28→22:18)
[2016-10-26 06:30] LABS: Basophils # (auto) 0 uL; Basophils % (auto) 0.3 % (0.0-2.0); CONDITION Y; DEFINITIVE SEE PRINTOUT; Eosinophils # (auto) 0.2 uL; Eosinophils % (auto) 3.4 % (0.0-7.0); Hematocrit 35.1 % (36.0-46.0); Hemoglobin 11.6 g/dL (12.2-16.2); Lymphocytes # (auto) 1.4 uL; Lymphocytes % (auto) 31.2 % (10.0-50.0); Mean Corpuscular Hemoglobin 33.5 pg (28.0-32.0); Mean Corpuscular Hgb Conc. 32.9 g/dL (32.0-36.0); Mean Corpuscular Volume 101.8 fL (80.0-100.0); Mean Platelet Volume 9.9 fL (7.4-10.4); Monocytes # (auto) 0.6 uL; Monocytes % (auto) 12.9 % (0.0-12.0); Neutrophils # (auto) 2.3 uL; Neutrophils % (auto) 52.2 % (37.0-80.0); Platelet Count (auto) 142 10^3/uL (140-450); Red Cell Distribution Width 17.6 % (11.6-16.0); White Blood Cell 4.5 10^3/uL (4.4-10.8)
[2016-10-26 06:37] LABS: Prothrombin Time 10.9 sec (9.37-12.3)
[2016-10-26 06:45] LABS: BUN/Creatinine Ratio 5.9; Potassium 5.2 mmol/L (3.5-5.1)
[2016-10-26] MEDS ORDERED: LISINOPRIL 10 MG TAB PO SCH (10:00)
[2016-10-26] MEDS: PHENYTOIN SODIUM 100 MG CAP PO SCH ×2 (10:27→22:14)
[2016-10-26] MEDS: cefTRIAXone 1GM/50ML D5W 50 ML IV SCH (10:27)
[2016-10-26] MEDS: LEVETIRACETAM 500 MG TAB PO SCH ×2 (10:28→22:14)
[2016-10-26] MEDS: amLODIPine BESYLATE 5 MG TAB PO SCH (10:30)
[2016-10-26] MEDS: METOPROLOL TARTRATE 50 MG TAB PO SCH ×2 (10:31→22:14)
[2016-10-26] MEDS: GABAPENTIN 100 MG CAP PO SCH ×2 (10:31→22:13)
[2016-10-26] MEDS: ASPirin 81 mg TAB PO SCH (10:32)
[2016-10-26] MEDS: ATORVASTATIN 20 MG TAB PO SCH (22:13)
[2016-10-26] MEDS: LORazepam 0.5 MG TAB PO PRN (22:14)
[2016-10-27] MEDS: MORPHINE SULF INJ 2 MG/ML SYRINGE 1ML IV PRN ×4 (02:42→20:22)
[2016-10-27] MEDS: ONDANSETRON HCL 4 MG/2 ML VIAL IV PRN ×5 (02:46→20:40)
[2016-10-27] MEDS: LORazepam 0.5 MG TAB PO PRN (04:59)
[2016-10-27 05:00] VITALS: BP 140/87
[2016-10-27] MEDS: InsuLIN REG 1unit/0.01ml Soln (100units/ml) SC SCH ×4 (06:14→22:07)
[2016-10-27] MEDS: ACCU-CHEK COMFORT CURVE STRIP VI SCH ×4 (06:15→22:07)
[2016-10-27 09:00] VITALS: BP 158/79
[2016-10-27] MEDS ORDERED: ADENOSINE 48 MG in GIVE UN-DILUTED 0 ML IV ONE (10:00)
[2016-10-27] MEDS: cefTRIAXone 1GM/50ML D5W 50 ML IV SCH (10:51)
[2016-10-27] MEDS: amLODIPine BESYLATE 5 MG TAB PO SCH (10:52)
[2016-10-27] MEDS: GABAPENTIN 100 MG CAP PO SCH ×2 (10:53→21:44)
[2016-10-27] MEDS: METOPROLOL TARTRATE 50 MG TAB PO SCH ×2 (10:53→21:46)
[2016-10-27] MEDS: LEVETIRACETAM 500 MG TAB PO SCH ×2 (10:53→21:44)
[2016-10-27] MEDS: PHENYTOIN SODIUM 100 MG CAP PO SCH ×2 (10:53→21:44)
[2016-10-27] MEDS: ASPirin 81 mg TAB PO SCH (10:54)
[2016-10-27 13:00] VITALS: BP 151/48
[2016-10-27 17:00] VITALS: BP 163/80
[2016-10-27 20:15] VITALS: BP 172/105
[2016-10-27] MEDS: ATORVASTATIN 20 MG TAB PO SCH (21:44)
[2016-10-27 21:51] VITALS: BP 172/105
[2016-10-28] MEDS: ONDANSETRON HCL 4 MG/2 ML VIAL IV PRN ×6 (00:50→23:27)
[2016-10-28] MEDS: MORPHINE SULF INJ 2 MG/ML SYRINGE 1ML IV PRN ×6 (00:50→23:27)
[2016-10-28 04:53] VITALS: BP 132/69
[2016-10-28] MEDS: InsuLIN REG 1unit/0.01ml Soln (100units/ml) SC SCH ×4 (06:32→21:52)
[2016-10-28] MEDS: ACCU-CHEK COMFORT CURVE STRIP VI SCH ×4 (06:33→21:52)
[2016-10-28] MEDS ORDERED: HEPARIN SODIUM (PORCINE) 5000 UNITS/ML 1ML VIAL IV ONE (07:15)
[2016-10-28] MEDS ORDERED: LIDOCAINE 2%HCL (LOCAL ANESTH.) INJ 20ML MDV ONE (07:24)
[2016-10-28] MEDS ORDERED: IODIXANOL 320MG/ML 100ML BTL IV ONE (07:24)
[2016-10-28 08:51] VITALS: BP 150/74
[2016-10-28] MEDS: cefTRIAXone 1GM/50ML D5W 50 ML IV SCH (11:19)
[2016-10-28] MEDS: PHENYTOIN SODIUM 100 MG CAP PO SCH ×2 (11:19→21:51)
[2016-10-28] MEDS: ASPirin 81 mg TAB PO SCH (11:20)
[2016-10-28] MEDS: LEVETIRACETAM 500 MG TAB PO SCH (11:20)
[2016-10-28] MEDS: GABAPENTIN 100 MG CAP PO SCH ×2 (11:20→21:52)
[2016-10-28] MEDS: METOPROLOL TARTRATE 50 MG TAB PO SCH ×2 (11:21→21:52)
[2016-10-28] MEDS: amLODIPine BESYLATE 5 MG TAB PO SCH (11:21)
[2016-10-28] MEDS ORDERED: LORazepam 2MG/ML-1ML VIAL IV PRN (12:30)
[2016-10-28 13:34] VITALS: BP 119/60
[2016-10-28 14:28] VITALS: BP 119/60
[2016-10-28] MEDS ORDERED: IOHEXOL 350 MG/ML 100ML IJ ONE (15:35)
[2016-10-28] MEDS ORDERED: fentaNYL CITRATE 100 MCG/2 ML VL ONE (15:37)
[2016-10-28] MEDS ORDERED: SODIUM CHL 0.9% 0 ML ONE (15:38)
[2016-10-28] MEDS ORDERED: MIDAZOLAM HCL 1MG/1ML-2 ML VIAL ONE (15:38)
[2016-10-28] MEDS: LORazepam 0.5 MG TAB PO PRN (21:29)
[2016-10-28] MEDS: ATORVASTATIN 20 MG TAB PO SCH (21:51)
[2016-10-28 22:00] VITALS: BP 108/56
[2016-10-29] MEDS: ONDANSETRON HCL 4 MG/2 ML VIAL IV PRN ×5 (03:47→23:36)
[2016-10-29] MEDS: MORPHINE SULF INJ 2 MG/ML SYRINGE 1ML IV PRN ×5 (03:48→23:35)
[2016-10-29] MEDS: LORazepam 0.5 MG TAB PO PRN ×2 (03:48→11:05)
[2016-10-29 05:00] VITALS: BP 168/57
[2016-10-29] MEDS: InsuLIN REG 1unit/0.01ml Soln (100units/ml) SC SCH ×5 (06:42→22:37)
[2016-10-29] MEDS: ACCU-CHEK COMFORT CURVE STRIP VI SCH ×5 (06:42→22:37)
[2016-10-29 08:11] VITALS: BP 114/74
[2016-10-29] MEDS: cefTRIAXone 1GM/50ML D5W 50 ML IV SCH (08:13)
[2016-10-29] MEDS: GABAPENTIN 100 MG CAP PO SCH ×2 (09:20→22:37)
[2016-10-29] MEDS: PHENYTOIN SODIUM 100 MG CAP PO SCH ×2 (09:20→22:36)
[2016-10-29] MEDS: ASPirin 81 mg TAB PO SCH (09:21)
[2016-10-29] MEDS: METOPROLOL TARTRATE 50 MG TAB PO SCH ×2 (09:21→22:36)
[2016-10-29] MEDS: amLODIPine BESYLATE 5 MG TAB PO SCH (09:22)
[2016-10-29 10:39] LABS: Phosphorus 5.3 mg/dL (2.5-4.90); Uric Acid 3.9 mg/dL (2.6-6.0)
[2016-10-29] MEDS ORDERED: DEXTROSE (50%) 50ML SYRG IV PRN (11:30)
[2016-10-29 12:18] VITALS: BP 143/92
[2016-10-29] MEDS ORDERED: MORPHINE SULF INJ 2 MG/ML SYRINGE 1ML IV ONE (14:15)
[2016-10-29 16:39] VITALS: BP 156/72
[2016-10-29 22:00] VITALS: BP 148/91
[2016-10-29] MEDS: ATORVASTATIN 20 MG TAB PO SCH (22:36)
[2016-10-30] MEDS: MORPHINE SULF INJ 2 MG/ML SYRINGE 1ML IV PRN ×4 (03:44→18:18)
[2016-10-30] MEDS: ONDANSETRON HCL 4 MG/2 ML VIAL IV PRN ×4 (03:44→18:18)
[2016-10-30 05:00] VITALS: BP 147/92
[2016-10-30] MEDS: InsuLIN REG 1unit/0.01ml Soln (100units/ml) SC SCH ×4 (06:34→22:00)
[2016-10-30] MEDS: ACCU-CHEK COMFORT CURVE STRIP VI SCH ×4 (06:35→22:28)
[2016-10-30 09:00] VITALS: BP 158/73
[2016-10-30] MEDS: METOPROLOL TARTRATE 50 MG TAB PO SCH ×2 (09:28→21:56)
[2016-10-30] MEDS: cefTRIAXone 1GM/50ML D5W 50 ML IV SCH (09:28)
[2016-10-30] MEDS: PHENYTOIN SODIUM 100 MG CAP PO SCH ×2 (09:28→21:56)
[2016-10-30] MEDS: ASPirin 81 mg TAB PO SCH (09:28)
[2016-10-30] MEDS: GABAPENTIN 100 MG CAP PO SCH ×2 (09:29→21:57)
[2016-10-30] MEDS: amLODIPine BESYLATE 5 MG TAB PO SCH (09:29)
[2016-10-30 13:00] VITALS: BP 159/82
[2016-10-30] MEDS ORDERED: DOCUSATE SOD 100 MG CAP PO PRN (14:00)
[2016-10-30] MEDS ORDERED: LACTULOSE 20Gm/30ML SOLN PO SCH (14:00)
[2016-10-30] MEDS: DOCUSATE SOD 100 MG CAP PO SCH ×2 (14:10→21:56)
[2016-10-30 18:17] VITALS: BP 152/86
[2016-10-30 18:20] VITALS: BP 128/74
[2016-10-30 21:38] VITALS: BP 156/78
[2016-10-30] MEDS: ATORVASTATIN 20 MG TAB PO SCH (21:56)
[2016-10-31] MEDS ORDERED: SODIUM CHL 0.9% 1000 ML BAG XX ONE (04:00)
[2016-10-31] MEDS: MORPHINE SULF INJ 2 MG/ML SYRINGE 1ML IV PRN ×2 (04:29→13:03)
[2016-10-31] MEDS: ONDANSETRON HCL 4 MG/2 ML VIAL IV PRN ×2 (04:30→13:03)
[2016-10-31] MEDS: LORazepam 0.5 MG TAB PO PRN (04:30)
[2016-10-31 04:53] VITALS: BP 148/70
[2016-10-31] MEDS: ACCU-CHEK COMFORT CURVE STRIP VI SCH ×2 (06:24→11:35)
[2016-10-31] MEDS: InsuLIN REG 1unit/0.01ml Soln (100units/ml) SC SCH ×2 (06:24→11:30)
[2016-10-31 09:12] VITALS: BP 141/85
[2016-10-31] MEDS: cefTRIAXone 1GM/50ML D5W 50 ML IV SCH (09:30)
[2016-10-31] MEDS: amLODIPine BESYLATE 5 MG TAB PO SCH (10:00)
[2016-10-31] MEDS: METOPROLOL TARTRATE 50 MG TAB PO SCH (10:00)
[2016-10-31] MEDS: ASPirin 81 mg TAB PO SCH (10:00)
[2016-10-31 12:32] VITALS: BP 143/72
[2016-10-31] MEDS: PHENYTOIN SODIUM 100 MG CAP PO SCH (13:01)
[2016-10-31] MEDS: GABAPENTIN 100 MG CAP PO SCH (13:02)
[2016-10-31] MEDS: DOCUSATE SOD 100 MG CAP PO SCH (13:02)
[2016-11-03 11:07] LABS: Vitamin D-2 25-Hydroxy 1.2 ng/mL (.)
== END 2016-10-31 15:00 | disposition home or self-care (01) | DRG 192 ==
LOC: EDBD 10:20 → ER 10:20 → TELE 10:21 → TELE-WESTW 22:25 → TELE-CENTR 10-27 08:02
PROVIDERS: ADMIT Nurse Practitioner Family; ATTEND Internal Medicine
PROC: 5A1D60Z (ICD-10-PCS; 2016-10-25)
PROC: 4A023N7 Measurement of Cardiac Sampling and Pressure, Left Heart, Percutaneous Approach (ICD-10-PCS; principal; 2016-10-28)
PROC: B2111ZZ Fluoroscopy of Multiple Coronary Arteries using Low Osmolar Contrast (ICD-10-PCS; 2016-10-28)
PROC: B2151ZZ Fluoroscopy of Left Heart using Low Osmolar Contrast (ICD-10-PCS; 2016-10-28)
DX: I25.119 Atherosclerotic heart disease of native coronary artery with unspecified angina pectoris (principal); N17.9 Acute kidney failure, unspecified; I12.0 Hypertensive chronic kidney disease with stage 5 chronic kidney disease or end stage renal disease; I24.9 Acute ischemic heart disease, unspecified; E10.42 Type 1 diabetes mellitus with diabetic polyneuropathy; E10.22 Type 1 diabetes mellitus with diabetic chronic kidney disease; N18.6 End stage renal disease; N30.00 Acute cystitis without hematuria; Z99.2 Dependence on renal dialysis; R56.9 Unspecified convulsions; J45.909 Unspecified asthma, uncomplicated; D63.1 Anemia in chronic kidney disease; E87.5 Hyperkalemia; F17.210 Nicotine dependence, cigarettes, uncomplicated; I13.11 Hypertensive heart and chronic kidney disease without heart failure, with stage 5 chronic kidney disease, or end stage renal disease; Z82.49 Family history of ischemic heart disease and other diseases of the circulatory system; Z83.3 Family history of diabetes mellitus; G89.29 Other chronic pain; M54.5 Low back pain; Z88.8 Allergy status to other drugs, medicaments and biological substances; Z79.4 Long term (current) use of insulin; Z98.51 Tubal ligation status; Z90.89 Acquired absence of other organs
CPT/HCPCS: 36415; 70360; 71010; 78452; 80048; 80053; 80061; 80185; 81001; 82306; 82962; 83036; 83735; 83970; 84100; 84484; 84550; 85025; 85610; 85730; 87086; 87088; 87186; 90935; 93005; 93017; 93458; 93923; 96365; 96367; 96375; 99152; 99291; J0153; J0696; J1815; J2250; J2405; Q9967

== ENCOUNTER 2020-01-29 13:32 | Inpatient (IN) | payer MEDICAID ==
[~2020-01-29] VITALS: Ht 165.1 cm; Wt 56.3 kg
[~2020-01-29 13:32] MED LIST changes: -AMLO10TA2 PO; -ATE25T PO; +B-CO1TAB22 PO; +DOCU-94 PO; -DOCU100T15 PO; -FLUO20CA90 PO; -GABA-497 PO; +INSLANTI SC; -INSLANTI SUBCUT; -LEVE100020 PO; +LIDO2.5C3 EX; -LISI10TA6 PO; -METO-159 PO; -NIF10C PO; +ONDA-144 PO; -ONDA8TAB6 PO; +SUCR5CHW PO
[2020-01-29] MEDS ORDERED: cloNIDine HCL 0.1 MG TAB ONE (13:45)
[2020-01-29] MEDS ORDERED: cloNIDine HCL 0.1 MG TAB PO ONE (13:45)
[2020-01-29 14:44] LABS: Basophils # (auto) 0 10 ^3/uL (0-0.2); Basophils % (auto) 0.4 % (0.0-2.0); Eosinophils # (auto) 0 10 ^3/uL (0-0.8); Hemoglobin 12.2 g/dL (12.2-16.2); Lymphocytes # (auto) 0.6 10 ^3/uL (0.4-5.4); Mean Corpuscular Hgb Conc. 33.6 g/dL (32.0-36.0); Monocytes # (auto) 0.2 10 ^3/uL (0-1.3)
[2020-01-29 14:46] LABS: Eosinophils % (auto) 1.4 % (0.0-7.0); Hematocrit 36.3 % (36.0-46.0); Lymphocytes % (auto) 17.3 % (10.0-50.0); Mean Corpuscular Hemoglobin 35.2 pg (28.0-32.0); Mean Corpuscular Volume 104.9 fL (80.0-100.0); Monocytes % (auto) 5.4 % (0.0-12.0); Neutrophils # (auto) 2.6 10 ^3/uL (1.6-8.6); Neutrophils % (auto) 75.5 % (37.0-80.0); Nucleated Red Blood Cells % 0.1 %; Platelet Count (auto) 152 10^3/uL (140-450); Red Blood Cells 3.46 10^6/uL (4.0-5.20); Red Cell Distribution Width 15.6 % (11.8-14.3); White Blood Cell 3.4 10^3/uL (4.4-10.8)
[2020-01-29 15:00] LABS: Potassium 3.3 mmol/L (3.5-5.1)
[2020-01-29 15:04] LABS: Albumin 4.1 g/dL (3.4-5.0); BUN/Creatinine Ratio 6.1; Calcium 9.4 mg/dL (8.5-10.1); Magnesium 2.2 mg/dL (1.6-2.6)
[2020-01-29 15:07] LABS: Total Protein 8.8 g/dL (6.4-8.2)
[2020-01-29 15:16] LABS: Alcohol, Urine < 3.0 mg/dL (0-10); Amphetamine Screen, Urine NEGATIVE (NEGATIVE); Barbiturate Scree,Urine NEGATIVE (NEGATIVE); Benzodiazephine Screen, Urine NEGATIVE (NEGATIVE); Cannabinoid Screen, Urine POSITIVE (NEGATIVE); Cocaine Screen, Urine NEGATIVE (NEGATIVE); Opiate Scree,Urine NEGATIVE (NEGATIVE); Phencyclidine Screen, Urine NEGATIVE (NEGATIVE)
[2020-01-29 15:38] LABS: Urine Bacteria FEW /hpf (None Seen); Urine Blood 3+ /uL (Negative); Urine Specific Gravity 1.007 (1.001-1.035); Urine WBC 1 /hpf (0 - 5)
[2020-01-29] MEDS ORDERED: ONDANSETRON HCL 4 MG/2 ML VIAL IV ONE (17:45)
[2020-01-29 18:20] LABS: INR 0.98 (0.9-1.15); Magnesium 2.3 mg/dL (1.6-2.6); Partial Thromboplastin Time 28.3 sec (23.0-31.2)
[2020-01-29] MEDS ORDERED: MORPHINE SULF INJ 2 MG/ML SYRINGE 1ML IV ONE (18:30)
[2020-01-29] MEDS ORDERED: MORPHINE SULF INJ 2 MG/ML SYRINGE 1ML IV PRN (21:15)
[2020-01-29] MEDS ORDERED: LACTULOSE 20Gm/30ML SOLN PO PRN (21:15)
[2020-01-29] MEDS ORDERED: ACETAMINOPHEN 500 MG TAB PO PRN (21:15)
[2020-01-29] MEDS ORDERED: NITROGLYCERIN 0.4 MG SL TAB SL PRN (21:15)
--- NOTE | 2020-01-29 22:12 | NUR ---
Telemetry admit from ER Patient admitted to Telemetry unit, no SBAR received. Patient A&O x 4, no s/s of distress or SOB, patient denies pain. Patient oriented to primary RN, unit, room, bed, and unit policies regarding patient care and visiting hours. Patient now on continuous telemetry monitoring, tele box #46 and telemetry reading on arrival to unit is 72 BPM. Patient weighed by bed scale, bed in lowest locked position with two side rails raised and call jaffe within reach. Instructed on POC and encouraged to call for assistance. All questions and concerns addressed, patient verbalized understanding.
--- NOTE | 2020-01-29 22:35 | NUR ---
Home Medications patient does not know name of home medications, patient states her caregiver can give list of home medication tomorrow.
[2020-01-30 05:36] VITALS: BP 150/96
[2020-01-30] MEDS: PANTOPRAZOLE 40 MG/10 ML VIAL INJ IV SCH (08:39)
[2020-01-30 09:30] VITALS: BP 158/93
[2020-01-30] MEDS: MORPHINE SULFATE 4 MG/ML SYR/VIAL IV PRN ×2 (09:33→23:22)
[2020-01-30] MEDS ORDERED: METO-169 PO (10:51)
[2020-01-30] MEDS ORDERED: SEVE800T8 PO (10:51)
[2020-01-30] MEDS ORDERED: OMEP20TA PO (10:51)
[2020-01-30] MEDS ORDERED: ATOR20TA PO (10:51)
[2020-01-30] MEDS ORDERED: CLOP75TA28 PO (10:51)
[2020-01-30] MEDS ORDERED: LISI-648 PO (10:51)
[2020-01-30] MEDS ORDERED: FURO1TAB33 PO (10:51)
[2020-01-30] MEDS ORDERED: CLON0.1T PO (10:51)
--- NOTE | 2020-01-30 11:11 | NUR ---
UPDATED MED LIST BY CALLING PATIENTS PHARMACY AND JANNETTE [facility] TO UPDATED INPATIENT MEDICATIONS. AWAITING CALL BACK.
[2020-01-30] MEDS ORDERED: LISINOPRIL 10 MG TAB PO ONE (12:45)
[2020-01-30] MEDS ORDERED: METOPROLOL SUCCINATE XL 50 MG TAB PO ONE (12:45)
[2020-01-30] MEDS ORDERED: DEXTROSE (50%) 50ML SYRG IV PRN (12:45)
[2020-01-30 13:00] VITALS: BP 165/102
[2020-01-30] MEDS: LACTULOSE 20Gm/30ML SOLN PO SCH (14:30)
[2020-01-30] MEDS ORDERED: AMLO5TAB15 PO (14:58)
[2020-01-30] MEDS: POLYETHYLENE GLYCOL 17 GM PWDR PO SCH ×2 (15:05→22:16)
[2020-01-30] MEDS: cloNIDine HCL 0.1 MG TAB PO SCH ×2 (15:06→22:15)
[2020-01-30] MEDS ORDERED: amLODIPine BESYLATE 5 MG TAB PO ONE (15:15)
[2020-01-30 17:00] VITALS: BP 145/94
[2020-01-30] MEDS: InsuLIN REG 1unit/0.01ml Soln (100units/ml) SC SCH ×2 (17:00→22:00)
[2020-01-30] MEDS: ACCU-CHEK COMFORT CURVE STRIP VI SCH ×2 (17:23→22:17)
[2020-01-30] MEDS: DICYCLOMINE HCL 10 MG CAP PO SCH ×2 (18:10→22:16)
[2020-01-30] MEDS: SEVELAMER 800 MG TAB PO SCH (18:10)
--- NOTE | 2020-01-30 19:08 | NUR ---
OPENING SHIFT NOTE: Assumed care of patient. Patient awake, alert and oriented x 4, no s/s of SOB or distress. Bed in lowest locked position with two side rails raised and call jaffe within reach. Instructed on POC and encouraged to call for assistance, all questions and concerns addressed, patient verbalizes understanding. Will continue to monitor Q1 hr and PRN.
[2020-01-30 20:00] VITALS: BP 155/90
[2020-01-30 21:38] VITALS: BP 155/90
[2020-01-30] MEDS: PHENYTOIN SODIUM 100 MG CAP PO SCH (22:16)
[2020-01-31 05:04] VITALS: BP 156/85
[2020-01-31 05:38] LABS: Basophils # (auto) 0 10 ^3/uL (0-0.2); Basophils % (auto) 0.9 % (0.0-2.0); Eosinophils # (auto) 0.1 10 ^3/uL (0-0.8); Hemoglobin 10.8 g/dL (12.2-16.2); Lymphocytes # (auto) 1.1 10 ^3/uL (0.4-5.4); Monocytes # (auto) 0.4 10 ^3/uL (0-1.3); Monocytes % (auto) 13.3 % (0.0-12.0)
[2020-01-31 05:41] LABS: Eosinophils % (auto) 3.3 % (0.0-7.0); Hematocrit 32.3 % (36.0-46.0); Lymphocytes % (auto) 40.5 % (10.0-50.0); Mean Corpuscular Hemoglobin 35.5 pg (28.0-32.0); Mean Corpuscular Hgb Conc. 33.5 g/dL (32.0-36.0); Mean Corpuscular Volume 105.9 fL (80.0-100.0); Neutrophils # (auto) 1.2 10 ^3/uL (1.6-8.6); Nucleated Red Blood Cells % 0.4 %; Platelet Count (auto) 133 10^3/uL (140-450); Red Blood Cells 3.05 10^6/uL (4.0-5.20); Red Cell Distribution Width 14.9 % (11.8-14.3); White Blood Cell 2.8 10^3/uL (4.4-10.8)
[2020-01-31 05:57] LABS: BUN/Creatinine Ratio 6.2; Calcium 8.4 mg/dL (8.5-10.1); Potassium 4.3 mmol/L (3.5-5.1)
[2020-01-31] MEDS: cloNIDine HCL 0.1 MG TAB PO SCH ×3 (06:00→21:49)
[2020-01-31 06:02] LABS: % Iron Saturation 32.1 % (15-50)
--- NOTE | 2020-01-31 06:27 | NUR ---
MEDICATION HELD Patient to receive Dialysis this morning, 0600 Clonidine held per protocol.
[2020-01-31] MEDS: ACCU-CHEK COMFORT CURVE STRIP VI SCH ×4 (06:39→21:56)
[2020-01-31] MEDS: DICYCLOMINE HCL 10 MG CAP PO SCH ×4 (06:39→21:48)
[2020-01-31] MEDS: InsuLIN REG 1unit/0.01ml Soln (100units/ml) SC SCH ×4 (06:40→21:56)
[2020-01-31] MEDS ORDERED: SODIUM CHL 0.9% 1000 ML BAG XX ONE (07:00)
[2020-01-31] MEDS: MORPHINE SULFATE 4 MG/ML SYR/VIAL IV PRN ×2 (08:44→16:00)
[2020-01-31] MEDS: ONDANSETRON HCL 4 MG/2 ML VIAL IV PRN ×3 (08:44→21:19)
[2020-01-31 09:00] VITALS: BP 147/79
[2020-01-31] MEDS: SEVELAMER 800 MG TAB PO SCH ×3 (09:12→18:00)
[2020-01-31 13:00] VITALS: BP 150/84
[2020-01-31] MEDS: PANTOPRAZOLE 40 MG/10 ML VIAL INJ IV SCH (14:42)
[2020-01-31] MEDS: PHENYTOIN SODIUM 100 MG CAP PO SCH ×2 (14:42→21:49)
[2020-01-31] MEDS: LACTULOSE 20Gm/30ML SOLN PO SCH (14:42)
[2020-01-31] MEDS: METOPROLOL SUCCINATE XL 50 MG TAB PO SCH (14:45)
[2020-01-31] MEDS: amLODIPine BESYLATE 5 MG TAB PO SCH (14:47)
[2020-01-31] MEDS: FUROSEMIDE 20 MG TAB PO SCH (14:47)
[2020-01-31] MEDS: CLOPIDOGREL BISULFATE 75 MG TAB PO SCH (14:48)
[2020-01-31] MEDS: LISINOPRIL 10 MG TAB PO SCH (14:49)
[2020-01-31] MEDS: POLYETHYLENE GLYCOL 17 GM PWDR PO SCH ×2 (14:50→21:49)
[2020-01-31 17:00] VITALS: BP 181/114
[2020-01-31 17:27] VITALS: BP 156/102
--- NOTE | 2020-01-31 20:26 | NUR ---
Opening Shift Note Assumed care of patient, awake and alert. No S/S of distress/SOB or pain. POC discussed and questions answered. Patient stated she had bowel movement and did not need enema. Bed is locked in lowest position with side rails up x2 for safety, call light is within reach and patient encouraged to call for assist PRN. Will continue to monitor for changes Q1hr and PRN.
[2020-01-31 22:00] VITALS: BP 190/113
[2020-02-01] MEDS: cloNIDine HCL 0.1 MG TAB PO SCH ×2 (02:55→06:13)
[2020-02-01 05:00] VITALS: BP 148/87
[2020-02-01] MEDS: DICYCLOMINE HCL 10 MG CAP PO SCH ×2 (06:13→12:00)
[2020-02-01] MEDS: InsuLIN REG 1unit/0.01ml Soln (100units/ml) SC SCH ×2 (06:13→12:27)
[2020-02-01] MEDS: ACCU-CHEK COMFORT CURVE STRIP VI SCH ×2 (06:13→12:29)
[2020-02-01] MEDS: ONDANSETRON HCL 4 MG/2 ML VIAL IV PRN (06:24)
[2020-02-01] MEDS: MORPHINE SULFATE 4 MG/ML SYR/VIAL IV PRN (06:41)
[2020-02-01] MEDS: SEVELAMER 800 MG TAB PO SCH ×2 (08:00→12:00)
[2020-02-01 09:00] VITALS: BP 163/95
[2020-02-01] MEDS: PANTOPRAZOLE 40 MG/10 ML VIAL INJ IV SCH (09:25)
[2020-02-01] MEDS: PHENYTOIN SODIUM 100 MG CAP PO SCH (09:26)
[2020-02-01] MEDS: CLOPIDOGREL BISULFATE 75 MG TAB PO SCH (09:26)
[2020-02-01] MEDS: METOPROLOL SUCCINATE XL 50 MG TAB PO SCH (09:26)
[2020-02-01] MEDS: FUROSEMIDE 20 MG TAB PO SCH (09:27)
[2020-02-01] MEDS: amLODIPine BESYLATE 5 MG TAB PO SCH (09:27)
[2020-02-01] MEDS: LACTULOSE 20Gm/30ML SOLN PO SCH (09:28)
[2020-02-01] MEDS: LISINOPRIL 10 MG TAB PO SCH (09:28)
[2020-02-01] MEDS: POLYETHYLENE GLYCOL 17 GM PWDR PO SCH (09:29)
--- NOTE | 2020-02-01 10:35 | NUR ---
Nutrition Assessment Est Energy needs 8291-9704 kcal (30-35 kcal/kg BW 56.3kg) Est protein needs 67-78g (1.2-1.4g/kg BW 56.3kg r/t ESRD on HD) Will reassess prn Addendum: 02/01/20 at [address] Amended: Links added.
[2020-02-01 13:00] VITALS: BP 166/98
[2020-02-01 14:22] VITALS: BP 166/98
--- NOTE | 2020-02-01 15:34 | NUR ---
Discharge instructions given as ordered. Encourage to follow up with Primary Care Provider as instructed. All questions and concerns addressed. Patient verbalized understanding. IV removed with catheter intact, pressure dressing applied. Telemetry unit removed and returned to ICU. Patient taken to vehicle via wheelchair with all personal belongings, accompanied by staff and family member. No distress noted at time of departure.
== END 2020-02-01 14:55 | disposition home or self-care (01) | DRG 254 ==
LOC: ER 13:32 → EDBD 13:32 → TELE 13:33 → TELE-CENTR 22:12
PROVIDERS: ADMIT Internal Medicine; ATTEND Internal Medicine
PROC: 5A1D70Z Performance of Urinary Filtration, Intermittent, Less than 6 Hours Per Day (ICD-10-PCS; principal; 2020-01-31)
DX: K58.1 Irritable bowel syndrome with constipation (principal); I12.0 Hypertensive chronic kidney disease with stage 5 chronic kidney disease or end stage renal disease; N18.6 End stage renal disease; E10.43 Type 1 diabetes mellitus with diabetic autonomic (poly)neuropathy; I16.1 Hypertensive emergency; E10.22 Type 1 diabetes mellitus with diabetic chronic kidney disease; Z79.4 Long term (current) use of insulin; N20.0 Calculus of kidney; Z99.2 Dependence on renal dialysis; E05.90 Thyrotoxicosis, unspecified without thyrotoxic crisis or storm; K31.84 Gastroparesis; E78.5 Hyperlipidemia, unspecified; Z80.3 Family history of malignant neoplasm of breast; Z82.49 Family history of ischemic heart disease and other diseases of the circulatory system; Z83.3 Family history of diabetes mellitus; Z86.73 Personal history of transient ischemic attack (TIA), and cerebral infarction without residual deficits; F32.9 Major depressive disorder, single episode, unspecified; G40.909 Epilepsy, unspecified, not intractable, without status epilepticus; Z88.6 Allergy status to analgesic agent; Z91.018 Allergy to other foods; J44.9 Chronic obstructive pulmonary disease, unspecified; D63.8 Anemia in other chronic diseases classified elsewhere
CPT/HCPCS: 36415; 71045; 74176; 80048; 80053; 80307; 81001; 81025; 82150; 82728; 82962; 83540; 83550; 83690; 83735; 84702; 85025; 85610; 85730; 87081; 90935; 93005; 96374; 96375; 96376; C9113; G0378; J1642; J1815; J2405